=== PATIENT | female | born 1975 | race Caucasian/White ===

== ENCOUNTER 2020-03-15 22:32 | Emergency (ER) | payer OTHER ==
[~2020-03-15] VITALS: Ht 160 cm; Wt 88.5 kg
--- NOTE | ~2020-03-15 | EKG ---
[facility] [address] [place] [address] ELECTROCARDIOGRAM REPORT Name: ISREALMAX CARVALHO Room #: [facility].#: [id number] Admission: Attend Phys: Discharge: Date of : 77 Report #: [id number] THIS REPORT FOR: cc: Christa Bell MD, Epiphany MD ~ THIS REPORT FOR: //name// [facility] ED Test Date: 2020-03-15 Test Time: 23:34:02 Pat Name: MAX BACH Department: Room: Gender: F Loader Engineer: SHANNAN : 1975 Requested By: Danilo Guzman Order Number: [id number] MD: Measurements Intervals [place] Rate: 85 P: 42 FL: 129 QRS: -12 QRSD: 99 T: 57 QT: 390 QTc: 464 Interpretive Statements Sinus rhythm No previous ECG available for comparison [email or web address] By: [id number] Misty Jay MD /EPI
[~2020-03-15 22:32] MED LIST: NEXIUM40 MG PO; NOHOMEMEDICATIONS; OXYCODONE HCL 55 MG PO; OXYCODONE HCL15 MG; OXYCODONE HCL15 MG PO; OXYCONTIN20 M1 PO; SKELAXIN 800 M800 M1 PO; TIZANIDINE HCL4 M1 PO; ZANTAC 150MG T150 M1 PO
[2020-03-15 23:13] LABS: URINE BILIRUBIN NEGATIVE (Negative); URINE BLOOD NEGATIVE (Negative); URINE CLARITY CLEAR; URINE COLOR YELLOW; URINE GLUCOSE-RANDOM* NEGATIVE (Negative); URINE KETONES NEGATIVE (Negative); URINE LEUKOCYTES-REFLEX NEGATIVE (Negative); URINE NITRITE-REFLEX NEGATIVE (Negative); URINE PROTEIN (DIPSTICK) NEGATIVE (Negative); URINE SPECIFIC GRAVITY >= 1.030 (1.005-1.035); URINE UROBILINOGEN 0.2 E.U./dl (0.2-1.0)
[2020-03-15 23:15] LABS: AMP/METHAMP POSITIVE (Negative); BARBITURATES Negative (Negative); BENZODIAZEPINES Negative (Negative); COCAINE Negative (Negative); METHADONE Negative (Negative); OPIATES Negative (Negative); PCP POSITIVE (Negative)
[2020-03-15 23:22] LABS: ABSOLUTE NEUTROPHILS 2.1 thou/uL (1.4-8.2); BASOPHILS 0.7 % (0.0-2.0); HEMATOCRIT 44.6 % (37.0-47.0); HEMOGLOBIN 14.9 gm/dL (12.0-15.0); LYMPHOCYTES 39.2 % (24.0-44.0); MCHC 33.4 g/dL (28.0-37.0); MCV 92.8 fL (80.0-100.0); MONOCYTES 10.5 % (1.0-8.0); PLATELET COUNT 195 thou/uL (150-400); POLYS 48.6 % (36.0-66.0); RBC 4.81 mil/uL (4.20-5.00); RDW 13.1 % (10.5-14.5); WBC 4.4 thou/uL (4.0-11.0)
[2020-03-15 23:28] LABS: ANION GAP 8 mmol/L (7-16); BUN 10 mg/dL (7-18); CALCIUM 8.4 mg/dL (8.5-10.1); CHLORIDE 101 mmol/L (98-107); CO2 28 mmol/L (21-32); CREATININE 0.9 mg/dL (0.6-1.0); GLUCOSE 100 mg/dL (74-106); POTASSIUM 3.8 mmol/L (3.5-5.1); SODIUM 137 mmol/L (136-145)
[2020-03-15 23:34] LABS: ALBUMIN 3.5 g/dL (3.4-5.0); SALICYLATE 3.2 mg/dL (2.8-20.0); SGOT 31 U/L (15-37); SGPT 48 U/L (30-65); TOTAL BILIRUBIN 0.2 mg/dL (0.2-1.0); TOTAL PROTEIN 7.9 g/dL (6.4-8.2)
[2020-03-16 12:33] VITALS: BP 116/77
== END 2020-03-16 12:32 | disposition home or self-care (01) ==
LOC: ER 22:32
PROVIDERS: Emergency Medicine
DX: U07.1 COVID-19 (principal); F32.9 Major depressive disorder, single episode, unspecified; F15.90 Other stimulant use, unspecified, uncomplicated; F16.10 Hallucinogen abuse, uncomplicated; R45.851 Suicidal ideations; J45.909 Unspecified asthma, uncomplicated; F41.1 Generalized anxiety disorder; E66.9 Obesity, unspecified; Z98.890 Other specified postprocedural states; Z79.899 Other long term (current) drug therapy; Z88.0 Allergy status to penicillin; Z88.8 Allergy status to other drugs, medicaments and biological substances; Z68.34 Body mass index [BMI] 34.0-34.9, adult